=== PATIENT | female | born 1975 | race Two or more races ===

== ENCOUNTER 2022-09-07 09:45 | Inpatient (IN) | payer OTHER ==
[~2022-09-07] VITALS: Ht 154.9 cm; Wt 58.1 kg
== END 2022-09-16 11:21 | disposition home or self-care (01) | DRG 743 ==
LOC: SURG 09-08 09:45 → O/R 09-15 06:56 → SURG 09-15 09:45 → OB/GYN 09-15 11:44 → SURG 09-15 15:00 → OB/GYN 09-16 11:21
PROVIDERS: ADMIT Specialist; ATTEND Specialist
PROC: 0UT74ZZ Resection of Bilateral Fallopian Tubes, Percutaneous Endoscopic Approach (ICD-10-PCS; 2022-09-15)
PROC: 0UT94ZZ Resection of Uterus, Percutaneous Endoscopic Approach (ICD-10-PCS; principal; 2022-09-15 15:00)
DX: D25.1 Intramural leiomyoma of uterus (principal); Z20.822 Contact with and (suspected) exposure to COVID-19; N80.03 Adenomyosis of the uterus